=== PATIENT | female | born 1990 ===

== ENCOUNTER 2019-01-15 20:05 | Inpatient (IN) | payer OTHER ==
[~2019-01-15] VITALS: Ht 170.2 cm; Wt 81.6 kg
[~2019-01-15 20:05] MED LIST: ACET-1718 PO; IBUP800T37 PO; NITR-105 PO; PREN-123 PO
[2019-01-15] MEDS ORDERED: DLR(*) 1000 ML BAG 1,000 ML IV PRN (20:08)
[2019-01-15] MEDS ORDERED: FAMOTIDINE(*) 20MG/50ML PREMIX 50 ML IVPB PRN (20:08)
[2019-01-15] MEDS ORDERED: LR(*) 1000 ML BAG 1,000 ML IV PRN (20:08)
[2019-01-15] MEDS ORDERED: OXYTOCIN 30 UNIT/NS 500 ML 500 ML IV PRN (20:08)
[2019-01-15] MEDS ORDERED: fentaNYL CITR 100 MCG/2 ML AMP IVP PRN (20:10)
[2019-01-15] MEDS ORDERED: cefOXitin/DEX(*) 2GM/50ML PREM 50 ML IVPB PRN (20:10)
[2019-01-15] MEDS ORDERED: LIDOCAINE 1% LOCAL 300 MG/30ML INJ PRN (20:10)
[2019-01-15] MEDS ORDERED: FLUSH 10 ML SYR IVP PRN (20:10)
[2019-01-15] MEDS ORDERED: METOCLOPRAMIDE 10 MG/2 ML SDV IVP PRN (20:10)
[2019-01-15 20:48] LABS: PLATELET COUNT, AUTOMATED 316 K/uL (150-450)
[2019-01-15] MEDS ORDERED: GLYCERIN/WITCH HAZEL LEAF 1 PK TOP PRN (21:10)
[2019-01-15] MEDS ORDERED: INFLUENZA VIRUS VAC 0.5ML SYR IM ONLY ONE (21:10)
[2019-01-15] MEDS ORDERED: ACETAMINOPHEN 325 MG TAB PO PRN (21:10)
[2019-01-15] MEDS ORDERED: MEASLES,MUMP,RUBELLA VAC 0.5ML SC ONE (21:10)
[2019-01-15] MEDS ORDERED: HYDROCORTISONE 2.5% CR 30GM TB PR PRN (21:10)
[2019-01-15] MEDS ORDERED: LANOLIN OINT 7 GM TUBE TP PRN (21:10)
[2019-01-15] MEDS ORDERED: MAGNESIUM HYDROXIDE* 30ML UDCP PO PRN (21:10)
[2019-01-15] MEDS ORDERED: BENZOCAINE 20% 60 ML BTL TP PRN (21:10)
[2019-01-15] MEDS ORDERED: DIPHTH/TETANUS/ACEL. PERTUSSIS IM ONE (21:10)
--- NOTE | 2019-01-15 21:19 | OB Delivery Note ---
Delivery Note Vaginal Delivery Type: Spont. Vaginal Delivery Delivery Date: Jan 15, 2019 Delivery Time: 20:55 Estimated Gestational Age(wks): 39.5 Infant Sex: Female Only Apgars: 1 Minute (8), 5 Minute (9) Estimated Blood Loss: 100 Delivery Complications: Precipitous Notes: Presented in labor and 8cm dilated with report of slow uterine contractions most of today and suddenly more severe and every 2 minutes. I presented straight away to hospital and she was then complete and no time to place an epidural. An IV was not able to be placed and pt feeling very pushy. Baby vtx and SALOMON position. Assembled for delivery and began pushing with coaching. She brought baby to [facility] and perineum stabilized. Delivery over intact perineum. Shoulders delivered spontaneous. Placenta delivered spontaneous and intact and no complications. Uterus massaged firm. Pitocin 10 units IM x 1 administered. Surgical Elastic Knitter in Attendence: No Copies to: PHILOMENA JC MD ; PHILOMENA JC MD Jan 15, 2019 21:19
--- NOTE | 2019-01-15 21:22 | History & Physical ---
History of Present Illness Age of Patient: 28 : 3 Para or TPAL: 2 EDC per LMP: Jan 18, 2019 Estimated Gestational Age: 39.5 Chief Complaint Labor History of Present Illness Presents in active labor and 8cm and progressing fast. uncomplicated. Past Medical, Surgical, Family and Obstetric Histories reviewed. Please see ACOG chart. History Allergies: Coded Allergies: No Known Drug Allergies (Unverified , 03/28/15) Med Rec Home Meds Active Scripts Ibuprofen (IBUPROFEN) 800 Mg Tablet, 1 TAB PO Q8H, #30 TAB Take with food every 8 hours. Prov:FANNIE VENEGAS MD 03/30/15 Reported Medications Nitrofurantoin Monohyd/M-Cryst (MACROBID 100 MG CAPSULE) 100 Mg Capsule, 100 MG PO, CAPSULE TAKE DIRECTED BY DR. VENEGAS 01/07/17 Vits W-Ca,Fe,Fa(<1MG) ( FORMULA) 1 Each Tablet, 1 EACH PO QAM, #1 03/29/15 Review of Systems All Systems Reviewed/Normal: Yes, Except as Noted Exam General Exam General Apperance: Alert/Awake/No Acute Distress Neuro: No Gross deficits Cardiovascular: Regular Rate and Rhythm Respiratory: No Respiratory Distress Abdomen: Soft, Non-Tender, Non-Distended, Gravid - Non-Tender Psychological: Alert & Oriented X3, Appropriate Mood & Affect Fetus FHT Category: I Medical Decision Making Data Points Result Diagram: 01/15/192034 VTE Prophylasis: Adult Deep Vein Thrombosis/Pulmonary: No Pharmacological Contraindicati: Pt at Low Risk for VTE Mechanical Contraindications: Pt at Low Risk for VTE Assessment and Plan CUT OFF SAWYER Plan: Routine Labor Care Problems: (1) care following vaginal delivery Status: Acute (2) Active labor Status: Acute Assessment & Plan: Expecting PHILOMENA IBARRA MD Jan 15, 2019 21:21
[2019-01-15 21:56] VITALS: BP 111/59
[2019-01-15] MEDS ORDERED: OXYTOCIN 10 UNIT/ML SDV ONE (22:31)
[2019-01-16] MEDS: APAP/HYDROCODONE 325/5 TAB PO PRN ×2 (00:46→08:56)
[2019-01-16] MEDS ORDERED: IBUPROFEN 800 MG TAB PO SCH (01:00)
[2019-01-16 01:09] VITALS: BP 123/59; Ht 170.2 cm; Wt 81.6 kg
[2019-01-16 03:25] VITALS: BP 120/77
[2019-01-16] MEDS: IBUPROFEN 800 MG TAB PO SCH ×3 (06:15→14:02)
--- NOTE | 2019-01-16 08:12 | OB/GYN Progress Note ---
OB Subjective Progress Notes Subjective Feeling well. No pain and ambulating and voiding well. Wants to go home. GI: NEG Nausea : Voiding Well Pain: Mild OB Objective Physical Exam Vital Signs Date Time Temp Pulse Resp B/P (MAP) Pulse Ox O2 Delivery O2 Flow Rate FiO2 01/16/19 03:25 98.0 64 16 120/77 (91) Room Air Intake and Output 01/16/19 07:00 Output Total 850 ml Balance -850 ml Output Urine Total 850 ml # Voids 2 General Appearance: Alert/Awake/No Acute Distress Neurological: No Gross deficits Cardiovascular: Normal Rhythm & Peripheral Pulses, Regular Rate and Rhythm Respiratory: No Respiratory Distress, Clear to Auscultation Abdomen: Soft, Non-Tender, Non-Distended, Fundus Firm Psychological: Alert & Oriented X3, Appropriate Mood & Affect Result Diagram: 01/16/19 0547 Assessment and Plan SOFTWARE APPLICATION TESTER Plan: Routine Post- Care, Discharge Home Today Problems: (1) care following vaginal delivery Status: Acute Assessment & Plan: Reviewed discharge precautions. Return to office at 6 weeks. (2) Active labor Status: Acute PHILOMENA JC MD Jan 16, 2019 08:12
[2019-01-16] MEDS ORDERED: IBUP800T37 PO (08:13)
--- NOTE | 2019-01-16 08:14 | OB/GYN Discharge Summary ---
Discharge Summary Reason for Hosp/Final Diag: (1) care following vaginal delivery Status: Acute Hospital Course & Plan: Reviewed discharge precautions. Return to office at 6 weeks. (2) Active labor Status: Acute Lates Vital Signs Vital Signs Date Time Temp Pulse Resp B/P (MAP) Pulse Ox O2 Delivery O2 Flow Rate FiO2 01/16/19 03:25 98.0 64 16 120/77 (91) Room Air Weight (Pounds): 180 Result Diagram: 01/16/19 0547 Condition: Improved Discharge: Home, Self [facility] Meds Reported Medications Vits W-Ca,Fe,Fa(<1MG) ( FORMULA) 1 Each Tablet, 1 EACH PO QAM, #1 03/29/15 Discontinued Reported Medications Nitrofurantoin Monohyd/M-Cryst (MACROBID 100 MG CAPSULE) 100 Mg Capsule, 100 MG PO, CAPSULE TAKE DIRECTED BY DR. VENEGAS 01/07/17 Discontinued Scripts Ibuprofen (IBUPROFEN) 800 Mg Tablet, 1 TAB PO Q8H, #30 TAB Take with food every 8 hours. Prov:FANNIE VENEGAS MD 03/30/15 Follow up Referrals: JUNIOR PHP DEVELOPER - In 6 Weeks @ [facility] with PHILOMENA MACDONALD MD Follow up with: Dr. Macdonald [phone] Follow up in: 6 wks PP or PO Discharge Diet: As Tolerates Discharge Activity: As Tolerates, No Heavy Lifting x 6 wks, No Heavy Lifting > 10lb, Pelvic Rest Copies to: PHILOMENA MACDONALD MD ; PHILOMENA MACDONALD MD Jan 16, 2019 08:14
[2019-01-16] MEDS: DOCUSATE CALCIUM 240 MG CAP PO SCH ×2 (08:56→21:00)
[2019-01-16 09:05] VITALS: BP 118/84
[2019-01-16 12:58] VITALS: BP 135/77
[2019-01-16 17:53] VITALS: BP 122/75
[2019-01-16 20:21] VITALS: BP 122/73
== END 2019-01-16 21:10 | disposition home or self-care (01) | DRG 807 ==
LOC: OBSVTOIN 20:05 → OB 20:05
PROVIDERS: ADMIT Obstetrics & Gynecology; ATTEND Obstetrics & Gynecology
PROC: 10E0XZZ Delivery of Products of Conception, External Approach (ICD-10-PCS; principal; 2019-01-15)
DX: O62.3 Precipitate labor (principal); Z37.0 Single live birth; Z3A.39 39 weeks gestation of pregnancy
CPT/HCPCS: 36415; 85025; 85027; 86703; 86850; 86900; 86901; J2590